=== PATIENT | female | born 1985 | race Caucasian/White ===

== ENCOUNTER 2021-12-10 09:10 | Inpatient (IN) | payer BC ==
[2021-12-10] MEDS ORDERED: fentaNYL 100 MCG/2 ML SDV IVPUSH PRN (10:15)
[2021-12-10] MEDS ORDERED: Ondansetron 4 MG/2 ML SDV IVPUSH PRN ×3 (10:15→11:47)
[2021-12-10] MEDS ORDERED: Morphine 2 MG/ML SYRINGE IVPUSH PRN (10:15)
[2021-12-10] MEDS ORDERED: Metoclopramide 10 MG/2 ML SDV IVPUSH PRN (10:15)
[2021-12-10] MEDS ORDERED: Naloxone 0.4 MG/ML SDV IVPUSH PRN ×2 (10:15→11:47)
[2021-12-10] MEDS ORDERED: HYDROmorphone 1 MG/ML Syringe IVPUSH PRN (10:15)
[2021-12-10] MEDS ORDERED: Albuterol 0.083% 2.5 MG/3 ML Neb Soln NEB PRN (10:15)
[2021-12-10] MEDS ORDERED: ePHEDrine 50 MG/ML SDV IVPUSH PRN (10:15)
[2021-12-10] MEDS ORDERED: Ondansetron 4 MG/2 ML SDV ONE ×2 (10:25)
[2021-12-10] MEDS ORDERED: EPINEPHrine 1:10,000 1 MG/10 ML Syringe ONE (10:26)
[2021-12-10] MEDS ORDERED: Oxytocin 10 Units/1 ML SDV ONE ×3 (10:26)
[2021-12-10] MEDS ORDERED: fentaNYL 100 MCG/2 ML SDV ONE (10:30)
[2021-12-10] MEDS ORDERED: Citric Acid/Sodium Citrate Solution 30 ML Cup PO ONE (10:36)
[2021-12-10] MEDS ORDERED: Sodium Chloride 0.9% 20 ML SDV IV PRN (10:36)
[2021-12-10] MEDS ORDERED: Sodium Chloride 0.9% 2.5 ML Syringe FLUSH PRN (10:36)
[2021-12-10] MEDS ORDERED: Dexmedetomidine 200 MCG/2 ML SDV ONE (10:36)
[2021-12-10] MEDS ORDERED: Sodium Chloride 0.9% 10 ML Syringe FLUSH PRN (10:36)
[2021-12-10] MEDS ORDERED: Azithromycin 500 MG in Sodium Chloride 0.9% 250 ML IV ONE (10:45)
[2021-12-10] MEDS ORDERED: Lactated Ringers 1,000 ML IV SCH ×2 (10:45→12:00)
[2021-12-10] MEDS ORDERED: Oxytocin/0.9 % Sodium Chloride 30 UNIT/500 ML BAG IV SCH (10:45)
[2021-12-10] MEDS ORDERED: Dexamethasone 4 MG/ML 5 ML MDV ONE (11:26)
[2021-12-10] MEDS ORDERED: Aluminum Hydroxide/Magnesium Hydroxide/Simethicone XS Susp 30 ML Cup PO PRN (11:47)
[2021-12-10] MEDS ORDERED: Methylergonovine 0.2 MG/1 ML Amp IM PRN (11:47)
[2021-12-10] MEDS ORDERED: diphenhydrAMINE 25 MG Cap PO PRN (11:47)
[2021-12-10] MEDS ORDERED: Ibuprofen 800 MG Tab PO PRN (11:47)
[2021-12-10] MEDS ORDERED: Lanolin 100% Cream 7 GM Tube TOP PRN (11:47)
[2021-12-10] MEDS ORDERED: Oxytocin 10 Units/1 ML SDV IM PRN (11:47)
[2021-12-10] MEDS ORDERED: HYDROmorphone/Normal Saline 10 MG/50 ML PCA IV PRN (11:47)
[2021-12-10] MEDS ORDERED: Tranexamic Acid 1,000 MG in Sodium Chloride 0.9% 100 ML IV PRN (11:47)
[2021-12-10] MEDS ORDERED: diphenhydrAMINE 50 MG/ML SDV IVPUSH PRN ×2 (11:47)
[2021-12-10] MEDS ORDERED: Bisacodyl 10 MG Supp RECTAL PRN (11:47)
[2021-12-10] MEDS ORDERED: Ketorolac 30 MG/ML SDV IVPUSH SCH (12:00)
[2021-12-10] MEDS ORDERED: HYDROMORPHONE IV PRN ×2 (12:15→12:20)
[2021-12-10] MEDS ORDERED: SODIUM CHLORIDE 0.9% IV PRN ×2 (12:15→12:20)
[2021-12-10] MEDS: Ketorolac 30 MG/ML SDV IVPUSH SCH ×2 (13:57→19:58)
[2021-12-10] MEDS: Simethicone 80 MG Tab.Chew PO SCH ×2 (15:19→17:46)
[2021-12-10] MEDS: HYDROmorphone 2 MG Tab PO PRN (17:45)
[2021-12-10] MEDS: Docusate Sodium 100 MG Cap PO SCH (20:34)
[2021-12-11] MEDS: HYDROmorphone 2 MG Tab PO PRN
[2021-12-11] MEDS: Simethicone 80 MG Tab.Chew PO SCH ×4 (00:01→19:12)
[2021-12-11] MEDS: Ketorolac 30 MG/ML SDV IVPUSH SCH ×3 (01:20→14:43)
[2021-12-11] MEDS: Acetaminophen 500 MG Tab PO PRN ×2 (02:37→11:07)
[2021-12-11] MEDS ORDERED: HYDROmorphone 2 MG Tab PO PRN ×4 (02:47→09:00)
[2021-12-11] MEDS: Docusate Sodium 100 MG Cap PO SCH ×2 (08:18→20:07)
[2021-12-11] MEDS: traMADol 50 MG Tab PO PRN ×3 (12:18→20:08)
[2021-12-11] MEDS ORDERED: Ibuprofen 800 MG Tab PO PRN (20:00)
[2021-12-12] MEDS: traMADol 50 MG Tab PO PRN ×3 (00:10→09:42)
[2021-12-12] MEDS: Acetaminophen 500 MG Tab PO PRN ×2 (00:11→08:37)
[2021-12-12] MEDS: Simethicone 80 MG Tab.Chew PO SCH ×2 (00:12→05:25)
[2021-12-12] MEDS: Docusate Sodium 100 MG Cap PO SCH (08:37)
== END 2021-12-12 11:27 | disposition home or self-care (01) | DRG 540 ==
LOC: MW.OBCHECK 09:10 → MW.OB 09:11 → MW.OBCHECK 09:59 → MW.OB 10:00
PROVIDERS: ADMIT Obstetrics & Gynecology; ATTEND Obstetrics & Gynecology
PROC: 10D00Z1 Extraction of Products of Conception, Low, Open Approach (ICD-10-PCS; principal; 2021-12-10)
DX: O34.211 Maternal care for low transverse scar from previous cesarean delivery (principal); Z3A.38 38 weeks gestation of pregnancy; Z37.0 Single live birth
CPT/HCPCS: 36415; 59025; 82803; 85014; 85018; 85027; 86592; 86850; 86900; 86901; A9270-GY; J0171; J1100; J1790; J1885; J2370; J2405; J2590; J3010; J7120